=== PATIENT | female | born 1995 | race Asian ===

== ENCOUNTER 2018-12-25 05:07 | Emergency (ER) | payer BC ==
[~2018-12-25] VITALS: Ht 167.6 cm; Wt 52.2 kg
[2018-12-25 05:14] VITALS: BP 102/61; Ht 167.6 cm; Wt 52.2 kg
== END 2018-12-25 05:45 | disposition home or self-care (01) ==
LOC: ED 05:07
DX: F43.20 Adjustment disorder, unspecified (principal); Z91.018 Allergy to other foods